=== PATIENT | female | born 1975 | race Caucasian/White ===

== ENCOUNTER → 2017-01-02 | Outpatient (CLI) | payer MEDICAID ==
[~2017-01-02] MED LIST: BYSTOLIC5 MG PO
--- NOTE | 2017-01-02 16:46 | RADIOLOGY REPORT PS360 ---
US THYROID HISTORY: Follow-up thyroid cysts, hypothyroidism HYPOTHYROIDISM ORDERING PHYSICIAN: TUCKER HAUSER APRN PATIENT AGE: 41 years COMPARISON: 02/01/2015 FINDINGS: The isthmus is normal at 2 mm. The right lobe measures 4 x 1.2 x 1.4 cm. Nonspecific 4 mm hypoechogenicity is present in the mid polar region on the right and a 3 mm hypoechoic nodule present in the lower pole on the right. Left lobe measures 3.3 x 1.2 x 1.4 cm. A 3 mm hypoechoic nodule present superiorly unchanged. A 4 mm hypoechoic nodule is present inferiorly. IMPRESSION: 1. Small bilateral thyroid nodules some of which which have developed since the previous exam. These are probably benign. Six-month follow-up recommended. Otherwise negative thyroid ultrasound
== END ==
LOC: RAD 12-28 13:30
DX: E03.8 Other specified hypothyroidism (principal)